=== PATIENT | female | born 1960 | race African-American/Black ===

== ENCOUNTER → 2016-12-30 | Outpatient (CLI) | payer BC ==
[2016-03-30 15:53] VITALS: BP 155/82
--- NOTE | 2016-12-31 08:38 | RAD ---
DATE: 12/30/2016 EXAM: DIGITAL SCREEN BILAT W/CAD HISTORY: Routine screening COMPARISON: 01/17/2008, 06/19/2010 This study was interpreted with the benefit of Computerized Aided Detection (CAD). The breast parenchyma is heterogeneously dense, which could reduce sensitivity of mammography. Breast parenchyma level C. FINDINGS: No new or enlarging breast densities are seen. A couple of tiny benign-appearing microcalcifications are noted on the left. No suspicious microcalcifications are seen. IMPRESSION: There is no mammographic evidence of malignancy in either breast. BI-RADS CATEGORY: 2 BENIGN FINDING(S) RECOMMENDED FOLLOW-UP: 12M 12 MONTH FOLLOW-UP PQRS compliance statement: Patient information was entered into a reminder system with a target due date for the next mammogram. Mammography is a sensitive method for finding small breast cancers, but it does not detect them all and is not a substitute for careful clinical examination. A negative mammogram does not negate a clinically suspicious finding and should not result in delay in biopsying a clinically suspicious abnormality. "Our facility is accredited by the [employer] Mammography [employer]."
== END | disposition home or self-care (01) ==
LOC: MAMMO 14:45
PROVIDERS: ATTEND Family Medicine
DX: Z12.31 Encounter for screening mammogram for malignant neoplasm of breast (principal)
CPT/HCPCS: G0202; 77067

== ENCOUNTER → 2018-06-24 | Outpatient (CLI) | payer BC ==
[2016-03-30 15:53] VITALS: BP 155/82
--- NOTE | 2018-06-28 09:31 | RAD ---
DATE: 06/24/2018 12:00 PM EXAM: DIGITAL SCREEN BILAT W/CAD HISTORY: routine screening evaluation. COMPARISON: Prior mammographic imaging 06/19/2010, 12/30/2016 01/17/2008 Bilateral full field craniocaudal and mediolateral oblique images were obtained using digital technique. This study was interpreted with the benefit of Computerized Aided Detection (CAD ). Breast Density: The breast parenchyma is heterogeneously dense, which could reduce sensitivity of mammography. Breast parenchyma level C. FINDINGS: Subtle punctate clustered calcifications are seen within the retroareolar, slightly superior left breast more conspicuous on today's exam. pattern is grossly stable. No suspicious masses, microcalcifications or architectural distortion is present to suggest malignancy in the right breast. The visualized axillae are unremarkable. IMPRESSION: Left breast indeterminate microcalcifications, findings for which additional imaging is advised. BI-RADS CATEGORY: 0 INCOMPLETE: NEEDS ADDITIONAL IMAGING EVALUATION AND/OR PRIOR MAMMOGRAMS FOR COMPARISON. RECOMMENDED FOLLOW-UP: ADD ADDITIONAL IMAGING. Additional imaging of the left breast is recommended to include spot magnification views of the microcalcifications. PQRS compliance statement: Patient information was entered into a reminder system with a target due date -immediate for the next mammogram. Mammography is a sensitive method for finding small breast cancers, but it does not detect them all and is not a substitute for careful clinical examination. A negative mammogram does not negate a clinically suspicious finding and should not result in delay in biopsying a clinically suspicious abnormality. "Our facility is accredited by the [employer] Mammography [employer]." [email or web address]
== END | disposition home or self-care (01) ==
LOC: MAMMO 10:07
PROVIDERS: ATTEND Family Medicine
DX: Z12.31 Encounter for screening mammogram for malignant neoplasm of breast (principal)
CPT/HCPCS: 77067

== ENCOUNTER → 2018-07-13 | Outpatient (CLI) | payer BC ==
[2016-03-30 15:53] VITALS: BP 155/82
--- NOTE | 2018-07-13 11:00 | RAD ---
DATE: 07/13/2018 EXAM: DIGITAL DIAGNOSTIC LT HISTORY: Left breast microcalcifications COMPARISON: Prior mammogram from 06/24/2018, 12/30/2016 This study was interpreted with the benefit of Computerized Aided Detection (CAD). FINDINGS: Spot magnification CC, MLO and ML views were obtained. There are 3 microcalcifications in the retroareolar region of the left breast. At least one is punctate and round in morphology. The other 2 are more heterogeneous and coarse. Findings are probably benign. Six-month follow-up mammogram is recommended. IMPRESSION: Probably benign microcalcifications of the left breast. BI-RADS CATEGORY: 3 PROBABLY BENIGN FINDING(S)-SHORT INTERVAL FOLLOW-UP SUGGESTED RECOMMENDED FOLLOW-UP: 6M 6 MONTH FOLLOW-UP PQRS compliance statement: Mammography is a sensitive method for finding small breast cancers, but it does not detect them all and is not a substitute for careful clinical examination. A negative mammogram does not negate a clinically suspicious finding and should not result in delay in biopsying a clinically suspicious abnormality. "Our facility is accredited by the [employer] Mammography [employer]."
== END | disposition home or self-care (01) ==
LOC: MAMMO 10:24
PROVIDERS: ATTEND Family Medicine
DX: R92.8 Other abnormal and inconclusive findings on diagnostic imaging of breast (principal)
CPT/HCPCS: 77065

== ENCOUNTER → 2019-01-25 | Outpatient (CLI) | payer SELFPAY ==
[2016-03-30 15:53] VITALS: BP 155/82
--- NOTE | 2019-01-25 16:00 | RAD ---
DATE: 01/25/2019 EXAM: DIGITAL DIAGNOSTIC LT HISTORY: Abnormal mammogram COMPARISON: 06/19/2010, 12/30/2016, 06/24/2018 mammographic exams This study was interpreted with the benefit of Computerized Aided Detection (CAD). Breast Density: HETERO The breast parenchyma is heterogenously dense, which could reduce sensitivity of mammography. Breast parenchyma level C. FINDINGS: Minimal calcifications involving the left supra-areolar region are very minimally increased compared to the previous exam of 06/24/2018. Few punctate calcifications in the interval are present involving this cluster. No mass or distortion in the interval. IMPRESSION: Minimal increase. Follow-up spot magnification imaging at the time of annual screening recommended. BI-RADS CATEGORY: 3 PROBABLY BENIGN FINDING(S)-SHORT INTERVAL FOLLOW-UP SUGGESTED RECOMMENDED FOLLOW-UP: 6M 6 MONTH FOLLOW-UP PQRS compliance statement: Patient information was entered into a reminder system with a target due date in 6 months for the next mammogram. Mammography is a sensitive method for finding small breast cancers, but it does not detect them all and is not a substitute for careful clinical examination. A negative mammogram does not negate a clinically suspicious finding and should not result in delay in biopsying a clinically suspicious abnormality. "Our facility is accredited by the [employer] Mammography [employer]."
== END | disposition home or self-care (01) ==
LOC: MAMMO 09:45
PROVIDERS: ATTEND Family Medicine
DX: R92.1 Mammographic calcification found on diagnostic imaging of breast (principal)
CPT/HCPCS: 77065